=== PATIENT | male | born 1960 | race African-American/Black ===

== ENCOUNTER → 2018-09-12 | Outpatient (CLI) | payer BC ==
--- NOTE | 2018-09-12 16:48 | RAD ---
Left upper extremity venous Doppler ultrasound HISTORY: Left arm pain after excision of axillary mass 3 weeks ago. TECHNIQUE: Grayscale, color Doppler and spectral waveform analysis is performed. FINDINGS: Left internal jugular vein, subclavian vein, axillary vein, and brachial vein are patent. Left basilic and cephalic vein are patent. Left radial and ulnar vein are patent. There is a small hypoechoic region measuring about 1 cm at the incision site, presumably a small hematoma. IMPRESSION: Negative for left upper extremity venous thrombosis. Electronically signed by: Preet Yang MD (09/12/2018 4:44 PM) [id number]
== END | disposition home or self-care (01) ==
LOC: US 14:05
PROVIDERS: ATTEND Surgery
DX: M79.602 Pain in left arm (principal); Z98.890 Other specified postprocedural states
CPT/HCPCS: 93971